=== PATIENT | male | born 1955 | race Caucasian/White ===

== ENCOUNTER 2017-06-14 11:53 | Emergency (ER) | payer OTHER ==
[~2017-06-14] VITALS: Ht 175.3 cm; Wt 70.3 kg
[~2017-06-14 11:53] MED LIST: MOTRIN 600 MG600 MG PO
[2017-06-14] MEDS ORDERED: VITAMIN D31000 UNI2 PO (12:22)
[2017-06-14] MEDS ORDERED: SYNTHROID112 MCG PO (12:22)
[2017-06-14] MEDS ORDERED: VITAMIN A8000 UNIT PO (12:23)
--- NOTE | 2017-06-14 12:23 | ED GI/GU/ABDOMINAL COMPLAINT ---
History of Present Illness General Chief Complaint: Abdominal Pain/Flank Pain Stated Complaint: RLQ ABD PAIN Source: patient, old records Exam Limitations: no limitations Vital Signs & Intake/Output Vital Signs & Intake/Output Vital Signs Date Time Temp Pulse Resp B/P B/P Pulse O2 O2 Flow FiO2 Mean Ox Delivery Rate 06/14 1359 96.3 88 20 117/77 98 Room Air 06/14 1157 97.3 82 20 121/79 97 Room Air Allergies Coded Allergies: NO KNOWN ALLERGIES (12/14/10) Reconcile Medications Cholecalciferol (Vitamin D3) 1,000 UNIT TABLET 1 TAB PO DAILY VITAMIN SUPPORT (Reported) Levothyroxine Sodium (Synthroid) 112 MCG TABLET 1 TAB PO DAILY AC THYROID ( Reported) Vitamin A 8,000 UNIT CAPSULE 1 TAB PO DAILY VITAMIN SUPPORT (Reported) Triage Note: RLQ ABDOMINAL PAIN SINCE LAST NIGHT. DENIES N/V/D. LAST BM THIS AM WHICH WAS NORMAL. PAIN IS ON AND OFF STABBING Triage Nurses Notes Reviewed? yes Onset: Abrupt Duration: day(s): (1), gone now, intermittent Timing: recent history Quality/Severity: aching, stabbing Severity Numbers: 6 Location: right lower quadrant Radiation: no radiation Activities at Onset: none Prior Abdominal Problems: none No Modifying Factors: none Associated Symptoms: denies HPI: 61 year Old male presents to ER for evaluation playing of intermittent right lower quadrant abdominal pain non-radiating since last night. He denies any associated nausea vomiting diarrhea. No urgency frequency hematuria. He has not needed to take anything for his symptoms. He denies pain currently. He denies any recent trauma fall or heavy lifting. He denies noting any hernia. No scrotal pain. No penile pain. No chest pain shortness of breath back pain. Nothing makes it better or worse The patient states he does a lot of lifting at work, and does a lot of sit ups he is not sure if this causes symptoms. (Sj Torres) Past History Travel History Traveled to [place] past 21 day No Medical History Any Pertinent Medical History? see below for history Endocrine: hypothyroidism Cancer(s): SKIN CANCER Surgical History Surgical History: THYROIDECTOMY Psychosocial History What is your primary language Irish Tobacco Use: Never used ETOH Use: denies use Illicit Drug Use: denies illicit drug use Family History Hx Contributory? No (Sj Torres) Review of Systems Review of Systems Constitutional: Reports: see HPI. Comments Review of systems: See HPI, All other systems negative. Constitutional, no chills no fever, HEENT: no sore throat no congestion Cardiovascular: No chest pain Skin: no rashes, no change in skin Respiratory: No dyspnea no cough no sputum GI: No nausea no vomiting, no diarrhea, no bloating/constipation : No dysuria No hematuria, no frequency Muscle skeletal: No joint pain, no back pain, no neck pain, Neurologic: , no headache Psych: No stress Heme/endocrine: No bruising Immunology: No lymphadenopathy (Sj Torres) Physical Exam Physical Exam General Appearance: well developed/nourished, no apparent distress, alert Gastrointestinal: normal bowel sounds, soft, non-tender Comments: Well-developed well-nourished person in no acute distress HEENT: Normal EENT exam; PERRL, EOMI, HEAD is atraumatic. moist mucous membranes. Neck: Supple, normal range of motion Back: Nontender, no CVA tenderness. Full range of motion Cardiovascular: Regular rate and rhythms no murmurs rubs Respiratory: No respiratory distress. Patient speaking in full complete sentences. Breath sounds clear to auscultation bilaterally: NO W/R/R Abdomen: Soft, nontender , no McBurney's point tenderness , nondistended, no appreciable organomegaly. Normal bowel sounds. No rebound/guarding, No appreciable enlargement of the abdominal aorta, No ascites. Extremity: No edema, full range of motion of extremities Neuro: Alert oriented x3, motor sensory normal, There were no obvious focal neurologic abnormalities. Skin: No appreciable rash on exposed skin, skin is warm and dry. Psych: Mood and affect is normal, memory and judgment is normal. Core Measures ACS in differential dx? No Sepsis Present: No Sepsis Focused Exam Completed? No (Sj Torres) Progress Differential Diagnosis: appendicitis, biliary colic, bowel obstruction, colon cancer, cholecystitis, gastritis, hepatitis, inflamm bowel dis, PUD/GERD, perforated viscous, pyelonephritis, SBO, ureterolithiasis, UTI/pyelo Plan of Care: Orders Procedure Date/time Status URINALYSIS 06/14 1154 Complete COMPREHENSIVE METABOLIC PANEL 06/14 1154 Complete CBC WITHOUT DIFFERENTIAL 06/14 1154 Complete Laboratory Tests 06/14/17 1245: Urine Color YEL, Urine Clarity CLEAR, Urine pH 6.0, Ur Specific [place] 1.025, Urine Protein NEG, Urine Ketones TRACE H, Urine Nitrite NEG, Urine Bilirubin NEG, Urine Urobilinogen 0.2, Ur Leukocyte Esterase NEG, Ur Microscopic EXAM NOT REQUIRED, Urine Hemoglobin NEG, Urine Glucose NEG 06/14/17 1240: Anion Gap 10, Estimated GFR > 60, BUN/Creatinine Ratio 18.9, Glucose 98, Calcium 9.5, Total Bilirubin 0.5, AST 20, ALT 26, Alkaline Phosphatase 53, Total Protein 6.7, Albumin 4.2, Globulin 2.5, Albumin/Globulin Ratio 1.7, CBC w Diff NO MAN DIFF REQ, RBC 4.67 L, MCV 90.1, MCH 30.6, RDW 12.8, MPV 7.9, Gran % 69.6, Lymphocytes % 22.6, Monocytes % 5.8, Eosinophils % 1.7, Basophils % 0.3, Absolute Granulocytes 4.9, Absolute Lymphocytes 1.6, Absolute Monocytes 0.4, Absolute Eosinophils 0.1, Absolute Basophils 0, PUBS MCHC 33.9 Patient is declining anything for pain would offer labs ordered CAT scan ordered. 1330 repeat evaluation patient has remained asystematic throughout the ER his abdomen remained soft Nontender pending CAT scan and discussed with family. I discussed with him his lab results to date. 1440 patient resting in no apparent distress again declining anything for pain still pending CAT scan I discussed with the patient at length all of their results. He is remained asymptomatic in the emergency room I had an extensive conversation regarding need for close follow up with their primary care physician this week as well as return precautions. I answered all of their questions, they feel comfortable with the plan and follow-up care. I discussed with the patient/family the medications that they will receive. I gave them signs and symptoms that could indicate an adverse reaction. I have advised them to limit their activities until they can see how they respond to the medication. Diagnostic Imaging: Viewed by Me: CT Scan. Discussed w/RAD: CT Scan. Radiology Impression: PATIENT: ALFRED AMARO PRESENT AGE: 61 PATIENT ACCOUNT NO: [id number] : 53 LOCATION: [facility] ORDERING PHYSICIAN: Sj MORALES SERVICE DATE: 06/14/17 EXAM TYPE: CAT - CT ABD & PELVIS W/O IV CONTRAS EXAMINATION: CT ABDOMEN AND PELVIS WITHOUT CONTRAST CLINICAL INFORMATION: Right lower quadrant abdominal pain. Assess for kidney stone. COMPARISON: None. TECHNIQUE: Multidetector volumetric imaging was performed from the superior aspect of the liver through the pubic symphysis. Sagittal and coronal reformatted images were obtained on the technologist's workstation. DLP: 249.18 mGy-cm FINDINGS: LUNG BASES: The visualized lung bases are unremarkable. LIVER, GALLBLADDER, AND BILIARY TREE: The liver is normal in size, shape, and attenuation. No focal hepatic lesion or biliary ductal dilatation is present. The gallbladder is unremarkable with no evidence of radiopaque gallstones, gallbladder wall thickening, or obvious pericholecystic inflammatory changes. PANCREAS: Unremarkable. SPLEEN: Unremarkable. ADRENAL GLANDS: The adrenal glands are not enlarged. KIDNEYS AND URETERS: The kidneys are normal in size, shape, and attenuation. No hydronephrosis, hydroureter, or calculi seen. No perinephric stranding. BLADDER: The bladder is decompressed. GASTROINTESTINAL TRACT: The stomach appears normal. The loops of small bowel are unremarkable. The appendix is normal. There is mild diverticulosis in the sigmoid colon. There is no evidence of acute diverticulitis. ABDOMINAL WALL: No significant hernia is appreciated. LYMPH NODES: There is no abdominal or pelvic lymphadenopathy. There are multiple small mesenteric lymph nodes which are nonspecific. PELVIC VISCERA: There is no free fluid in the pelvis. The prostate gland is enlarged and measures 5.3 cm transversely. OSSEOUS STRUCTURES: There are degenerative changes in the sacroiliac joints and in the lumbar spine. There are no suspicious lytic or sclerotic foci. IMPRESSION: 1. There are no radiodense renal calculi and there is no hydronephrosis or hydroureter. The appendix appears normal. 2. There is mild diverticulosis without evidence of acute diverticulitis. 3. There is prostatomegaly. DICTATED BY: Da Robertson MD DATE/TIME DICTATED:06/14/171428 COMPUTER TYPESETTER KEYLINER:JANE DATE/TIME TRANSCRIBED:06/14/171428 CONFIDENTIAL, DO NOT COPY WITHOUT APPROPRIATE AUTHORIZATION. <Electronically signed in Other Vendor System> SIGNED BY: Da Robertson MD 06/14/17 1443 Initial ED EKG: none (Sj Torres) Departure Departure Time of Disposition: 1446 Disposition: HOME OR SELF CARE Condition: Stable Clinical Impression Primary Impression: Abdominal pain Qualifiers: Abdominal location: right lower quadrant Qualified Code: R10.31 - Right lower quadrant pain Secondary Impressions: Diverticulosis Qualifiers: Diverticulosis site: unspecified location Diverticulosis bleeding: diverticulosis without bleeding Qualified Code: K57.90 - Diverticulosis of intestine, part unspecified, without perforation or abscess without bleeding Referrals: Elicia Lopez APRN (PCP/Family) Additional Instructions: Rest no heavy lifting avoid exercise and sit ups as this may make her symptoms worse Tylenol Motrin for pain. Heating pad as discussed follow up with your primary care physician, return to emergency room with any concerns. Departure Forms: Customer Survey General Discharge Information (Nancy MORALES,Sj) PA/[employer] Co-Sign Statement Statement: ED Attending supervision documentation- [X] I saw and evaluated the patient. I have also reviewed all the pertinent lab results and diagnostic results. I agree with the findings and the plan of care as documented in the PA's/[employer]'s documentation. [X] I have reviewed the ED Record and agree with the PA's/[employer]'s documentation. [] Additions or exceptions (if any) to the PAs/[employer]'s note and plan are summarized below: [] (Ronald BRANTLEY,Sigifredo Yeung)
[2017-06-14 12:51] LABS: ABSOLUTE BASOPHIL COUNT 0 /CUMM (0.0-0.2); ABSOLUTE EOSINOPHIL COUNT 0.1 /CUMM (0.0-0.7); ABSOLUTE GRANULOCYTE CT 4.9 /CUMM (1.4-6.5); ABSOLUTE LYMPH COUNT 1.6 /CUMM (1.2-3.4); ABSOLUTE MONOCYTE COUNT 0.4 /CUMM (0.10-0.60); BASOPHIL % 0.3 % (0.0-2.0); EOSINOPHIL % 1.7 % (0-5); GRANULOCYTE % 69.6 % (42.2-75.2); HEMATOCRIT 42.1 % (42-52); MEAN CORPUSCULAR HGB 30.6 PG (27.0-31.0); MEAN CORPUSCULAR HGB CONC 33.9 G/DL (33.0-37.0); MEAN CORPUSCULAR VOLUME 90.1 FL (80.0-94.0); MEAN PLATELET VOLUME 7.9 FL (7.4-10.4); PLATELET COUNT 289 /CUMM (130-400); RBC DISTRIBUTION WIDTH 12.8 % (11.5-14.5); RED BLOOD CELL CT 4.67 /CUMM (4.70-6.10); WHITE BLOOD CELL COUNT 7.1 /CUMM (4.8-10.8)
[2017-06-14 13:59] VITALS: BP 117/77
--- NOTE | 2017-06-14 14:43 | CT SCAN REPORT ---
EXAMINATION: CT ABDOMEN AND PELVIS WITHOUT CONTRAST CLINICAL INFORMATION: Right lower quadrant abdominal pain. Assess for kidney stone. COMPARISON: None. TECHNIQUE: Multidetector volumetric imaging was performed from the superior aspect of the liver through the pubic symphysis. Sagittal and coronal reformatted images were obtained on the technologist's workstation. DLP: 249.18 mGy-cm FINDINGS: LUNG BASES: The visualized lung bases are unremarkable. LIVER, GALLBLADDER, AND BILIARY TREE: The liver is normal in size, shape, and attenuation. No focal hepatic lesion or biliary ductal dilatation is present. The gallbladder is unremarkable with no evidence of radiopaque gallstones, gallbladder wall thickening, or obvious pericholecystic inflammatory changes. PANCREAS: Unremarkable. SPLEEN: Unremarkable. ADRENAL GLANDS: The adrenal glands are not enlarged. KIDNEYS AND URETERS: The kidneys are normal in size, shape, and attenuation. No hydronephrosis, hydroureter, or calculi seen. No perinephric stranding. BLADDER: The bladder is decompressed. GASTROINTESTINAL TRACT: The stomach appears normal. The loops of small bowel are unremarkable. The appendix is normal. There is mild diverticulosis in the sigmoid colon. There is no evidence of acute diverticulitis. ABDOMINAL WALL: No significant hernia is appreciated. LYMPH NODES: There is no abdominal or pelvic lymphadenopathy. There are multiple small mesenteric lymph nodes which are nonspecific. PELVIC VISCERA: There is no free fluid in the pelvis. The prostate gland is enlarged and measures 5.3 cm transversely. OSSEOUS STRUCTURES: There are degenerative changes in the sacroiliac joints and in the lumbar spine. There are no suspicious lytic or sclerotic foci. IMPRESSION: 1. There are no radiodense renal calculi and there is no hydronephrosis or hydroureter. The appendix appears normal. 2. There is mild diverticulosis without evidence of acute diverticulitis. 3. There is prostatomegaly.
== END 2017-06-14 14:51 ==
LOC: ERH 11:53
PROVIDERS: Physician Assistant Medical
DX: K57.90 Diverticulosis of intestine, part unspecified, without perforation or abscess without bleeding (principal)
CPT/HCPCS: 74176; 81003